=== PATIENT | female | born 1960 | race Caucasian/White ===

== ENCOUNTER 2016-11-14 06:46 | Day surgery (SDC) | payer OTHER ==
[~2016-11-14] VITALS: Ht 165.1 cm; Wt 79.4 kg
[2016-11-14] MEDS ORDERED: INSULIN LISPRO 100 UNITS/ML VIAL SUBQ SCH ×2 (08:05→10:40)
[2016-11-14] MEDS ORDERED: GABA300C PO (08:21)
[2016-11-14] MEDS ORDERED: ASPI-1206 PO (08:21)
[2016-11-14] MEDS ORDERED: ANXIETY (08:21)
[2016-11-14] MEDS ORDERED: HTN (08:21)
[2016-11-14] MEDS ORDERED: METF500T PO (08:21)
[2016-11-14] MEDS ORDERED: [UNRECOGNIZED DRUG - REMARK] (08:24)
[2016-11-14] MEDS ORDERED: ATI.5 PO (08:24)
[2016-11-14] MEDS ORDERED: VITD1000 PO (08:26)
[2016-11-14] MEDS ORDERED: fentaNYL 0.05 MG/ML VIAL ONE (08:53)
[2016-11-14] MEDS ORDERED: BUPIVACAINE-MPF 0.25% 30 ML VIAL INJ ONE (08:54)
[2016-11-14] MEDS ORDERED: ONDANSETRON 4 MG/2 ML VIAL IVP ONE (08:54)
[2016-11-14] MEDS ORDERED: PROPOFOL 200 MG/20 ML VIAL IV ONE (08:54)
[2016-11-14] MEDS ORDERED: SEVOFLURANE 250 ML BTL INH ONE (08:54)
[2016-11-14] MEDS ORDERED: KETOROLAC 30 MG/ML VIAL IVP PRN (09:20)
[2016-11-14] MEDS ORDERED: BLOOD GLUCOSE MONITORING 1 DEV DEV FS SCH (09:24)
[2016-11-14] MEDS ORDERED: ONDANSETRON 4 MG/2 ML VIAL IV PRN (09:55)
[2016-11-14] MEDS ORDERED: MORPHINE SULFATE 4 MG/ML SYR IV PRN (09:55)
[2016-11-14] MEDS ORDERED: ACETAMINOPHEN 325 MG TAB PO PRN (09:55)
[2016-11-14] MEDS ORDERED: HYDROmorphone 1 MG/ML AMP IVP PRN (09:55)
[2016-11-14] MEDS ORDERED: MORPHINE SULFATE 2 MG/ML SYR IVP PRN (09:55)
[2016-11-14] MEDS ORDERED: INSULIN LISPRO SLIDING SCALE 100 UNITS/ML VIAL SUBQ ONE (10:15)
== END 2016-11-14 12:22 | disposition home or self-care (01) ==
LOC: MDS 06:46 → MMU 06:46 → MDS 12:22
PROVIDERS: ATTEND Surgery
DX: D17.79 Benign lipomatous neoplasm of other sites (principal); I10 Essential (primary) hypertension; F32.9 Major depressive disorder, single episode, unspecified; F41.8 Other specified anxiety disorders; J45.909 Unspecified asthma, uncomplicated; E11.9 Type 2 diabetes mellitus without complications; E66.9 Obesity, unspecified; G40.909 Epilepsy, unspecified, not intractable, without status epilepticus; Z79.84 Long term (current) use of oral hypoglycemic drugs; Z98.890 Other specified postprocedural states; Z79.899 Other long term (current) drug therapy
CPT/HCPCS: 23073; 71010; 82948; 88304; 93005; J0690; J1815; J2270; J2405; J2704; J3010; J3490; J7030; J7060

== ENCOUNTER 2018-08-10 14:23 | Inpatient (IN) | payer OTHER ==
[~2018-08-10] VITALS: Ht 167.6 cm; Wt 77.6 kg
[~2018-08-10 14:23] MED LIST: ANXIETY; ASPI-1206 PO; ATI.5 PO; GABA300C PO; HTN; METF500T PO; VITD1000 PO; [UNRECOGNIZED DRUG - REMARK]
[2018-08-10 14:46] VITALS: BP 131/87
--- NOTE | 2018-08-10 14:54 | NUR ---
PATIENT IN THE BATHROOM
--- NOTE | 2018-08-10 14:57 | NUR ---
PT TAKEN TO BED 12.
--- NOTE | 2018-08-10 15:23 | NUR ---
PATIENT SENT FROM THE URGENT CARE FOR FURTHER EVALUATION. C/O ABD PAIN 9/10, DIARRHIA, NAUSEA AND VOMITING X 2DAYS. HX:DM,HIGH CHOLESTEROL,HTN, ASTHMA. NKDA. CONNECTED TO MONITOR.
[2018-08-10] MEDS ORDERED: PROMETHAZINE 25 MG/ML VIAL IM ONE (15:50)
[2018-08-10] MEDS ORDERED: MORPHINE SULFATE 4 MG/ML SYR IVP ONE (15:50)
[2018-08-10] MEDS ORDERED: KETOROLAC 30 MG/ML VIAL IVP ONE (15:50)
[2018-08-10] MEDS ORDERED: NACL 0.9% 1,000 ML IV ONE (15:50)
[2018-08-10 16:22] LABS: BASOPHILS % (AUTO) 0.3 % (0.0-2.0); EOSINOPHILS % (AUTO) 0.3 % (0.0-4.0); HEMATOCRIT 39.3 % (36-48); HEMOGLOBIN 13.2 g/dL (12.0-16.0); LYMPHOCYTES # (AUTO) 1.5 K/uL (2.5-16.5); LYMPHOCYTES % (AUTO) 31.5 % (20.5-51.1); MEAN CORPUSCULAR HEMOGLOBIN 31 pg (27-31); MEAN CORPUSCULAR HGB CONC 34 g/dL (33-37); MEAN CORPUSCULAR VOLUME 92.7 fL (80-94); MONOCYTES # (AUTO) 0.8 K/uL (0.8-1.0); MONOCYTES % (AUTO) 15.7 % (1.7-9.3); NEUTROPHILS # (AUTO) 2.5 K/uL (1.8-7.7); NEUTROPHILS % (AUTO) 52.2 % (42.2-75.2); PLATELET COUNT (AUTO) 194 K/uL (140-450); RED BLOOD CELL COUNT(AUTO) 4.24 MIL/uL (4.20-5.40); RED CELL DISTRIBUTION WIDTH 12.9 % (11.6-13.7); WHITE BLOOD COUNT (AUTO) 4.8 K/uL (4.8-10.8)
[2018-08-10 16:28] LABS: ANION GAP 17.5 (8-16); CARBON DIOXIDE 20.5 mmol/L (21-32)
[2018-08-10 16:34] LABS: ALBUMIN 3.6 g/dL (3.4-5.0); TOTAL BILIRUBIN 0.3 mg/dL (0.0-1.0)
--- NOTE | 2018-08-10 16:43 | NUR ---
Patient returned from CT scan. RN re-evaluating patient at bedside.
[2018-08-10] MEDS ORDERED: KCL 20 MEQ/WATER INJ PREMIX 100 ML IV ONE (17:40)
[2018-08-10] MEDS ORDERED: MORPHINE SULFATE 4 MG/ML SYR IVP PRN (18:45)
[2018-08-10] MEDS ORDERED: ACETAMINOPHEN 325 MG TAB PO PRN (18:45)
[2018-08-10] MEDS ORDERED: ALBUTEROL 0.083% 2.5 MG/3 ML NEBU INH PRN (18:45)
[2018-08-10] MEDS ORDERED: DEXTROSE 50% 50 ML SYR IVP PRN (18:50)
--- NOTE | 2018-08-10 19:16 | NUR ---
Pt report given to Carly RAGLAND . Transfer of care at this time.
[2018-08-10 20:25] VITALS: BP 141/59
--- NOTE | 2018-08-10 20:25 | NUR ---
RECEIVED BEDSIDE REPORT FROM PRODUCTION CONTROL PEGBOARD CLERK, PATIENT AMBULATED FROM WHEELCHAIR TO BED WITH STEADY GAIT, VITAL SIGNS STABLE EXCEPT FOR MINOR TACHYCARDIA, NO SIGNS OF DISTRESS ON RA, ORIENTED PATIENT TO ROOM AND UNIT AND EDUCATED PATIENT ON PLAN OF CARE, PATIENT SAYS PAIN IS TOLERABLE AT THIS TIME, BED LOW, CALL LIGHT IN REACH, WILL CONTINUE TO MONITOR.
--- NOTE | 2018-08-10 20:25 | NUR ---
Patient admited to Med-Surg. Will go to room 113-A. VSS, patient acting appropriatly; medications still infusing at time of transfer. Belongings list completed. Report to ELLYN Rogel; patient is going to have family bring home meds for med rec.
[2018-08-10 20:31] LABS: APPEARANCE,URINE CLEAR (CLEAR); BILIRUBIN,URINE NEGATIVE (NEGATIVE); BLOOD, URINE NEGATIVE (NEGATIVE); COLOR,URINE YELLOW (YELLOW); LEUKOCYTE ESTERASE ,URINE NEGATIVE (NEGATIVE); NITRITE, URINE NEGATIVE (NEGATIVE); UGLUCOSE 1+ (NEGATIVE)
[2018-08-10] MEDS: BLOOD GLUCOSE MONITORING 1 DEV DEV FS SCH (21:58)
[2018-08-10] MEDS: INSULIN LISPRO SLIDING SCALE 100 UNITS/ML VIAL SUBQ PRN (22:03)
[2018-08-10] MEDS: LACTATED RINGERS 1,000 ML IV SCH (22:39)
--- NOTE | 2018-08-10 23:15 | NUR ---
PATIENT COMPLAINING OF PAIN AT IV SITE IN RIGHT AC, IV LINE INFILTRATED. DISCONTINUED 20G FROM RIGHT AC, TIP INTACT. INSERTED 22 G IV CATHETER IN LEFT FOREARM, INSERTED ON FIRST TRY, PATIENT TOLERATED WELL.
[2018-08-11] MEDS ORDERED: PIPERACILLIN/TAZOBACTAM 2.25 GM VIAL IV ONE (00:30)
[2018-08-11] MEDS: LORazepam 2 MG/ML VIAL IVP PRN ×2 (00:34→23:50)
[2018-08-11] MEDS: PIPERACILLIN/TAZOBACTAM 3.375 GM in DEXTROSE 5% 50 ML IV SCH ×2 (00:35→06:54)
[2018-08-11] MEDS ORDERED: PIPERACILLIN/TAZOBACTAM 3.375 GM VIAL IV ONE ×2 (00:38→06:58)
--- NOTE | 2018-08-11 01:15 | NUR ---
PATIENT SLEEPING IN BED, TOLERATING IV INFUSIONS WELL, NO SIGNS OF DISTRESS ON RA, BED LOW, CALL LIGHTIN IN REACH, WILL CONTINUE TO MONITOR.
[2018-08-11] MEDS: KCL 20 MEQ/WATER INJ PREMIX 200 ML IV SCH ×3 (02:00→11:36)
--- NOTE | 2018-08-11 03:00 | NUR ---
PAGED DR. ESTES AND VERIFIED IV ORDER OF POTASSIUM 40 MEQ X 2 DOSES SCHEDULED Q6 HOURS. NOTIFIED MD THAT ER GAVE 20 MEQ BEFORE COMING TO MST ROOM. PER DR. ESTES, GIVE THE 40 MEQ POTASSIUM IV WELL 0600 DOSE WELL. WILL ADMINISTER PER MD ORDERS.
--- NOTE | 2018-08-11 03:20 | NUR ---
PATIENT SLEEPING IN BED, NO SIGNS OF DISTRESS ON RA, TOLERATING INFUSIONS WELL, BED LOW, CALL LIGHT IN REACH.
[2018-08-11 04:00] VITALS: BP 110/67
--- NOTE | 2018-08-11 05:26 | NUR ---
PATIENT LYING DOWN IN BED SLEEPING, AROUSABLE BY VOICE. NO DISTRESS NOTED. CONDITION UNCHANGED. WILL CONTINUE TO MONITOR.
[2018-08-11] MEDS ORDERED: ATOR40TA PO (05:37)
[2018-08-11] MEDS ORDERED: QUET25TA PO (05:37)
[2018-08-11] MEDS ORDERED: MELO15TA11 PO (05:37)
[2018-08-11] MEDS ORDERED: LOSA50TA66 PO (05:37)
[2018-08-11] MEDS ORDERED: BEN50 PO ×2 (05:37)
[2018-08-11] MEDS ORDERED: CYCL10TA13 PO (05:37)
[2018-08-11] MEDS ORDERED: MIRT15TA PO (05:37)
[2018-08-11] MEDS ORDERED: MAG SULF 2000 MG/WATER PREMIX 50 ML IV SCH (06:00)
--- NOTE | 2018-08-11 06:33 | NUR ---
PATIENT HAS BEEN SCREENED AND CATEGORIZED MODERATE NUTRITION RISK. PATIENT WILL BE SEEN WITHIN 3-5 DAYS OF ADMISSION. 08/12/18-08/14/18 KEITH WORTHINGTON MS, RDN
[2018-08-11] MEDS: BLOOD GLUCOSE MONITORING 1 DEV DEV FS SCH ×4 (06:54→21:28)
[2018-08-11] MEDS: LACTATED RINGERS 1,000 ML IV SCH ×2 (06:55→19:41)
[2018-08-11] MEDS: INSULIN LISPRO SLIDING SCALE 100 UNITS/ML VIAL SUBQ PRN ×4 (06:57→21:27)
--- NOTE | 2018-08-11 07:26 | NUR ---
GAVE BEDSIDE REPORT TO DAY SHIFT RN, ENDORSED PATIENT IN STABLE CONDITION.
--- NOTE | 2018-08-11 07:29 | NUR ---
REPORT RECEIVED FROM GIS INSTRUCTOR NURSE, PT AWAKE ALERT, RESP EVEN UNLABORED ON RA, SKIN WARM DRY COLOR WNL, ONLY REPORTS MINOR ABD PAIN, DENIES NEED FOR PAIN MED, POC REVIEWED, ALL SAFETY MEASURES IN PLACE, DENIES ANY IMMEDIATE NEEDS, WILL CONTINUE TO MONITOR.
[2018-08-11 07:58] LABS: BASOPHILS % (AUTO) 0.3 % (0.0-2.0); EOSINOPHILS % (AUTO) 0.5 % (0.0-4.0); HEMATOCRIT 37.4 % (36-48); HEMOGLOBIN 12.6 g/dL (12.0-16.0); LYMPHOCYTES # (AUTO) 1.7 K/uL (2.5-16.5); MEAN CORPUSCULAR HEMOGLOBIN 31 pg (27-31); MEAN CORPUSCULAR HGB CONC 34 g/dL (33-37); MEAN CORPUSCULAR VOLUME 92.9 fL (80-94); MONOCYTES # (AUTO) 0.7 K/uL (0.8-1.0); NEUTROPHILS # (AUTO) 1.8 K/uL (1.8-7.7); PLATELET COUNT (AUTO) 190 K/uL (140-450); RED BLOOD CELL COUNT(AUTO) 4.02 MIL/uL (4.20-5.40); RED CELL DISTRIBUTION WIDTH 12.8 % (11.6-13.7); WHITE BLOOD COUNT (AUTO) 4.3 K/uL (4.8-10.8)
[2018-08-11 08:00] VITALS: BP 96/64
[2018-08-11 08:22] LABS: LYMPHOCYTES % (AUTO) 39.5 % (20.5-51.1); MONOCYTES % (AUTO) 17.2 % (1.7-9.3); NEUTROPHILS % (AUTO) 42.5 % (42.2-75.2)
[2018-08-11 08:43] LABS: ALBUMIN 3.2 g/dL (3.4-5.0); ANION GAP 15.3 (8-16); CARBON DIOXIDE 24.4 mmol/L (21-32); CREATININE 0.8 mg/dL (0.6-1.3); POTASSIUM 3.7 mmol/L (3.5-5.1); TOTAL BILIRUBIN 0.3 mg/dL (0.0-1.0)
[2018-08-11] MEDS: ASPIRIN 325 MG TAB PO SCH (08:45)
[2018-08-11] MEDS: ENOXAPARIN 40 MG/0.4 ML SYR SUBQ SCH (08:54)
[2018-08-11] MEDS: MORPHINE SULFATE 2 MG/ML SYR IVP PRN (08:59)
--- NOTE | 2018-08-11 09:00 | NUR ---
PT C/O PULLING PAIN IN ABD, LOWER BACK 10/07, MORPHINE GIVEN PER ORDER.
[2018-08-11] MEDS: PIPER/TAZO 3.375GM/D5W PREMIX 50 ML IV SCH ×2 (11:42→18:34)
--- NOTE | 2018-08-11 11:48 | NUR ---
DR ESTES AT BEDSIDE, PT SITTING UP TALKING WITH VISITORS, 4U INSULIN GIVEN FOR BLOOD SUGAR 202, WILL CONTIUE TO MONITOR.
--- NOTE | 2018-08-11 14:02 | NUR ---
PT SITTING UP RESTING QUIETLY IN NAD, RESP EVEN UNLABORED, DENIES PAIN AT THIS TIME, IVF CONTINUES TO INFUSE WELL, SITE WNL, WILL CONTINUE TO MONITOR.
[2018-08-11 16:00] VITALS: BP 124/80
--- NOTE | 2018-08-11 16:09 | NUR ---
VITALS TAKEN, BLOOD SUGAR CHECKED, 152, WILL GIVE 2 U BEFORE DINNER, PT REPORTS ONLY MINOR PAIN, STATES SHE HAS HAD MULTIPLE LOOSE BM, LIQUID BUT NON-BLOODY.
--- NOTE | 2018-08-11 18:38 | NUR ---
ZOSYN STARTED PER ORDER, PT SITTING UP TALKING WITH VISITORS, DENIES ANY IMMEDIATE NEEDS, PT AWAKE ALERT, IN NO ACUTE DISTRESS.
--- NOTE | 2018-08-11 19:14 | NUR ---
REPORT GIVEN TO SCRIPT SUPERVISOR NURSE, PT IN STABLE CONDITION.
--- NOTE | 2018-08-11 19:15 | NUR ---
RECEIVED REPORT FROM AM NURSE. NO DISTRESS NOTED. PAIN WITHIN TOLERABLE AT THIS TIME. AAOX4, CALM, COOPERATIVE, SKIN COLOR APPROPRIATE TO ETHNICITY, WARM TO TOUCH. SKIN INTACT. RESPIRATIONS EVEN, UNLABORED, ON ROOM AIR. IV SITE INTACT, PATENT, AND INFUSING IVF PER MD ORDERS. ABDOMEN SOFT, NON-DISTENDED. REVIEWED PLAN OF CARE WITH PATIENT. PATIENT VERBALIZED UNDERSTANDING. SAFETY MEASURES IN PLACE, CALL LIGHT WITHIN REACH. WILL CONTINUE TO MONITOR.
[2018-08-11] MEDS: MIRTAZAPINE 15 MG TAB PO SCH (21:00)
[2018-08-11] MEDS: metFORMIN 500 MG TAB PO SCH (21:18)
[2018-08-11] MEDS: CYCLOBENZAPRINE 10 MG TAB PO SCH (21:20)
[2018-08-11] MEDS: QUEtiapine FUMARATE 25 MG TAB PO SCH (21:20)
--- NOTE | 2018-08-11 21:29 | NUR ---
PATIENT SITTING ON BEDSIDE CHAIR TALKING ON THE PHONE. NO DISTRESS NOTED. COMPLAINS OF MILD PAIN, TYLENOL GIVEN PER ORDERS. OTHER SCHEDULED MEDICATIONS DUE GIVEN. WILL CONTINUE TO MONITOR.
--- NOTE | 2018-08-11 23:53 | NUR ---
PATIENT FEELING ANXIOUS, ATIVAN GIVEN PER MD ORDERS. WILL CONTINUE TO MONITOR.
[2018-08-12] VITALS: BP 118/72
[2018-08-12] MEDS: PIPER/TAZO 3.375GM/D5W PREMIX 50 ML IV SCH ×5 (00:04→23:33)
--- NOTE | 2018-08-12 01:00 | NUR ---
PATIENT LYING DOWN IN BED SLEEPING, AROUSABLE BY VOICE. CONDITION UNCHANGED. WILL CONTINUE TO MONITOR.
--- NOTE | 2018-08-12 03:30 | NUR ---
PATIENT LYING DOWN IN BED SLEEPING, AROUSABLE BY VOICE. NO DISTRESS NOTED. WILL CONTINUE TO MONITOR.
[2018-08-12] MEDS: LACTATED RINGERS 1,000 ML IV SCH (05:35)
--- NOTE | 2018-08-12 05:41 | NUR ---
PATIENT LYING DOWN IN BED SLEEPING, AROUSABLE BY VOICE. NO DISTRESS NOTED. SCHEDULED MEDICATIONS DUE GIVEN. WILL CONTINUE TO MONITOR.
[2018-08-12] MEDS: INSULIN LISPRO SLIDING SCALE 100 UNITS/ML VIAL SUBQ PRN ×3 (06:24→20:05)
[2018-08-12] MEDS: BLOOD GLUCOSE MONITORING 1 DEV DEV FS SCH ×4 (06:24→20:06)
--- NOTE | 2018-08-12 07:10 | NUR ---
REPORT RECEIVED FROM CHEMISTRY DEPARTMENT CHAIR NURSE AT BEDSIDE. PT IS ASLEEP ON ROOM AIR, NO S/S OF ANY ACUTE DISTRESS NOTED, NO SOB. SKIN IS INTACT. IV SITE NOTED ON LFA, 22 GAUGE, INFUSING LR 80 ML/HR. PT IS ON CLEAR LIQUID DIET. CALL LIGHT IS WITHIN REACH, WILL CONTINUE TO MONITOR.
--- NOTE | 2018-08-12 07:35 | NUR ---
GAVE REPORT TO AM NURSE FOR CONTINUITY OF CARE. PATIENT IN STABLE CONDITION.
[2018-08-12 08:00] VITALS: BP 110/56
[2018-08-12] MEDS: ASPIRIN 325 MG TAB PO SCH (09:00)
[2018-08-12] MEDS: LOSARTAN 50 MG TAB PO SCH (09:00)
[2018-08-12] MEDS: ATORVASTATIN 20 MG TAB PO SCH (09:00)
[2018-08-12] MEDS: CYCLOBENZAPRINE 10 MG TAB PO SCH ×2 (09:00→19:57)
[2018-08-12] MEDS: ENOXAPARIN 40 MG/0.4 ML SYR SUBQ SCH (09:00)
[2018-08-12] MEDS: metFORMIN 500 MG TAB PO SCH ×2 (09:00→19:57)
--- NOTE | 2018-08-12 09:49 | NUR ---
CM NOTE I SPOKE WITH LINDA OF [facility] PH# [phone] TO SCHEDULE PATIENT'S OUTPATIENT FOLLOW UP APPOINTMENT ON AUGUST 19, 2018 AT 9:00 AM AT THE CLINIC AT [address] [place] [address]. I GAVE THE PATIENT HER OUTPATIENT FOLLOW UP APPOINTMENT.
--- NOTE | 2018-08-12 10:23 | NUR ---
PT'S IV SITE INFILTRATED. WILL ATTEMPT TO INSERT NEW IV.
--- NOTE | 2018-08-12 10:33 | NUR ---
SCHEDULED MA MEDS ADMINISTERED. PT TOLERATED WELL.
--- NOTE | 2018-08-12 10:38 | NUR ---
PT SEEN BY DR ESTES
--- NOTE | 2018-08-12 11:11 | NUR ---
NEW IV INSERTED: L HAND 24 GAUGE. PATENT AND INTACT.
[2018-08-12 16:00] VITALS: BP 119/61
--- NOTE | 2018-08-12 18:05 | NUR ---
DR HWANG IS AWARE OF PT'S LOW O2 SATS (90-91%). DR HWANG WILL ORDER O2 NASAL CANULA NEEDED TO KEEP O2 SAT ABOVE 92%. Addendum: 08/12/18 at 1851 by Sri Jarvis RN CHARTED ON WRONG PATIENT
--- NOTE | 2018-08-12 19:15 | NUR ---
PT ENDORSED TO BUSINESS MACHINE OPERATOR IN STABLE CONDITION.
--- NOTE | 2018-08-12 19:30 | NUR ---
RECEIVED BEDSIDE REPORT FROM RN JUNI, PATIENT IN RESTROOM, IV IN LEFT HAND 24 G SL, WILL ASSESS ONCE PATIENT IS BACK IN BED. UPDATED WHITE BOARD
[2018-08-12] MEDS: MIRTAZAPINE 15 MG TAB PO SCH (19:57)
[2018-08-12] MEDS: QUEtiapine FUMARATE 25 MG TAB PO SCH (19:57)
--- NOTE | 2018-08-12 20:00 | NUR ---
DUE MEDICATIONS GIVEN, BG 164 WILL MEDICATE WITH INSULIN
[2018-08-12] MEDS: LORazepam 2 MG/ML VIAL IVP PRN (21:16)
--- NOTE | 2018-08-12 21:21 | NUR ---
PATIENT C/O ANXIETY GAVE ATIVAN
--- NOTE | 2018-08-12 22:30 | NUR ---
PATIENT RESTING IN BED WILL CONTINUE TO MONITOR
[2018-08-13] VITALS: BP 115/66
--- NOTE | 2018-08-13 | NUR ---
ZOSYN GIVEN, V/S STABLE
--- NOTE | 2018-08-13 02:30 | NUR ---
SLEEPING IN BED NO SINGS OF DISTRESS
--- NOTE | 2018-08-13 04:15 | NUR ---
PATIENT SLEEPING IN BED
[2018-08-13] MEDS: PIPER/TAZO 3.375GM/D5W PREMIX 50 ML IV SCH ×2 (05:00→11:55)
[2018-08-13] MEDS: BLOOD GLUCOSE MONITORING 1 DEV DEV FS SCH ×2 (05:27→11:38)
--- NOTE | 2018-08-13 05:29 | NUR ---
BG 221 WILL GIVE INSULIN
[2018-08-13] MEDS: INSULIN LISPRO SLIDING SCALE 100 UNITS/ML VIAL SUBQ PRN ×2 (06:01→12:04)
--- NOTE | 2018-08-13 07:22 | NUR ---
ENDORSED PATIENT TO DAY SHIFT NURSE PATIENT STABLE
--- NOTE | 2018-08-13 07:23 | NUR ---
GOT BEDSIDE REPORT FROM ELLYN GLEZ. PATIENT ON MED SURGE AND STANDARD PRECAUTIONS IN PLACE. PATIENT AAOX4 AND ON ROOM AIR, NO DISTRESS NOTED. SKIN INTACT. PATIENT AMBULATORY. IV ON L FA 22 G, SALINE LOCK, IV ASYMPTOMATIC PATENT AND INTACT. BED IN LOW POSITION, CALL LIGHT WITHIN REACH, SIDE RAILS X2 UP
[2018-08-13 08:00] VITALS: BP 127/78
[2018-08-13] MEDS: CYCLOBENZAPRINE 10 MG TAB PO SCH (09:45)
[2018-08-13] MEDS: ASPIRIN 325 MG TAB PO SCH (09:45)
[2018-08-13] MEDS: ATORVASTATIN 20 MG TAB PO SCH (09:45)
[2018-08-13] MEDS: metFORMIN 500 MG TAB PO SCH (09:46)
[2018-08-13] MEDS: LOSARTAN 50 MG TAB PO SCH (09:46)
[2018-08-13] MEDS: ENOXAPARIN 40 MG/0.4 ML SYR SUBQ SCH (09:53)
--- NOTE | 2018-08-13 10:01 | NUR ---
ADMINISTERED SCHEDULED MEDS. PATIENT TOLERATED WELL
[2018-08-13] MEDS: MORPHINE SULFATE 2 MG/ML SYR IVP PRN (10:08)
--- NOTE | 2018-08-13 10:14 | NUR ---
ADMINISTERED MORPHINE PRN FOR 6/10 PAIN
[2018-08-13] MEDS ORDERED: METR500S14 PO (12:38)
--- NOTE | 2018-08-13 14:40 | NUR ---
DISCHARGE INSTRUCTIONS PROVIDED TO PATIENT. PNA AND FLU VACCINE UP TO DATE BOTH RECEIVED 2018. SKIN INTACT. EDUCATED TO FOLLOW UP WITH PRIMARY DOCTOR AND TO RETURN TO NEAREST ER IF SHE EXPERIENCES SOB, FEVER, PAIN. PATIENT PROVIDED COPY OF FOLLOW UP APPOINTMENT. REMOVED WRIST BANDS AND IV, IV TIP INTACT. ANSWERED ALL QUESTIONS AND CONCERNS
== END 2018-08-13 14:40 | disposition home or self-care (01) | DRG 248 ==
LOC: MED 14:23 → MTU 18:48
PROVIDERS: ADMIT Internal Medicine Pulmonary Disease; ATTEND Internal Medicine Pulmonary Disease
DX: A04.9 Bacterial intestinal infection, unspecified (principal); E11.9 Type 2 diabetes mellitus without complications; E87.6 Hypokalemia; E86.0 Dehydration; E78.00 Pure hypercholesterolemia, unspecified; E78.5 Hyperlipidemia, unspecified; J45.909 Unspecified asthma, uncomplicated; I10 Essential (primary) hypertension; F32.9 Major depressive disorder, single episode, unspecified; Z79.899 Other long term (current) drug therapy
CPT/HCPCS: 36415; 76705; 80053; 81003; 81025; 82150; 82948; 83690; 83735; 85025; 87081; 96361; 96365; 96372; 96375; 99285; J1650; J1815; J1885; J2060; J2270; J2543; J2550; J3475; J3480; J7060; J7120; Q0092

== ENCOUNTER 2018-10-31 16:59 | Inpatient (IN) | payer OTHER ==
[~2018-10-31] VITALS: Ht 167.6 cm; Wt 78.5 kg
[~2018-10-31 16:59] MED LIST changes: -ANXIETY; -ASPI-1206 PO; +ATOR40TA PO; +BEN50 PO; +CYCL10TA13 PO; -GABA300C PO; -HTN; +LOSA50TA66 PO; +MELO15TA11 PO; +METR500S14 PO; +MIRT15TA PO; +QUET25TA PO; -[UNRECOGNIZED DRUG - REMARK]
[2018-10-31 17:03] VITALS: BP 140/74
--- NOTE | 2018-10-31 17:10 | NUR ---
Yoselyn wilson in [facility] - 10/31/18 at 1941 by DIANA REPORT GIVEN TO BRICE RN
--- NOTE | 2018-10-31 17:12 | NUR ---
PT AMBULATED TO ER BED 06
--- NOTE | 2018-10-31 17:15 | NUR ---
PT C/O COUGH, FEVER & BODY ACHES 11/06 X3 DAYS. DENIES N/V/D. PT WAS REFFERED TO ER BY URGENT CARE TO R/O PNEUMONIA. PT REPORTS TAKING COUGH MEDICINE THAT DIDNT PROVIDE RELIEF. SKIN IS PINK/WARM/DRY; AAOX4 WITH EVEN AND STEADY GAIT; LUNGS CLEAR BL; HR EVEN AND REGULAR; PT DENIES ANY FEVER, CP, SOB, OR COUGH AT THIS TIME; VSS; PATIENT POSITIONED FOR COMFORT; HOB ELEVATED; BEDRAILS UP X1; BED DOWN. ER MD MADE AWARE OF PT STATUS.
[2018-10-31] MEDS ORDERED: NACL 0.9% 1,000 ML IV SCH (17:27)
[2018-10-31] MEDS ORDERED: DEXAMETHASONE 10 MG/ML VIAL IVP ONE (17:30)
[2018-10-31] MEDS ORDERED: AZITHROMYCIN 500 MG in DEXTROSE 5% 250 ML IV ONE (17:30)
[2018-10-31] MEDS ORDERED: PIPERACILLIN/TAZOBACTAM 3.375 GM in DEXT 5% MINI-BAG PLUS 50 ML IV ONE (17:30)
[2018-10-31] MEDS ORDERED: ALBUTEROL SULFATE/IPRATROPIU 3 ML SOL IH ONE (17:30)
[2018-10-31] MEDS ORDERED: diphenhydrAMINE 50 MG/ML VIAL IVP ONE (17:30)
[2018-10-31] MEDS ORDERED: AZITHROMYCIN 500 MG INJ VIAL IV ONE (17:50)
--- NOTE | 2018-10-31 17:50 | NUR ---
RT IS AT BEDSIDE FOR THERAPY.
[2018-10-31] MEDS ORDERED: PIPERACILLIN/TAZOBACTAM 3.375 GM VIAL IV ONE (17:51)
[2018-10-31 18:10] LABS: BASOPHILS % (AUTO) 0.4 % (0.0-2.0); EOSINOPHILS # (AUTO) 0.1 K/uL (0-0.4); EOSINOPHILS % (AUTO) 1.3 % (0.0-4.0); HEMATOCRIT 39.2 % (36-48); LYMPHOCYTES # (AUTO) 1.4 K/uL (2.5-16.5); LYMPHOCYTES % (AUTO) 29.8 % (20.5-51.1); MEAN CORPUSCULAR HEMOGLOBIN 31 pg (27-31); MEAN CORPUSCULAR HGB CONC 33 g/dL (33-37); MEAN CORPUSCULAR VOLUME 94.2 fL (80-94); MONOCYTES # (AUTO) 0.6 K/uL (0.8-1.0); MONOCYTES % (AUTO) 12.2 % (1.7-9.3); NEUTROPHILS # (AUTO) 2.6 K/uL (1.8-7.7); NEUTROPHILS % (AUTO) 56.3 % (42.2-75.2); PLATELET COUNT (AUTO) 193 K/uL (140-450); RED BLOOD CELL COUNT(AUTO) 4.16 MIL/uL (4.20-5.40); RED CELL DISTRIBUTION WIDTH 13.4 % (11.6-13.7); WHITE BLOOD COUNT (AUTO) 4.6 K/uL (4.8-10.8)
[2018-10-31 18:19] LABS: APPEARANCE,URINE SL CLOUDY (CLEAR); BILIRUBIN,URINE NEGATIVE (NEGATIVE); BLOOD, URINE TRACE-I (NEGATIVE); COLOR,URINE YELLOW (YELLOW); LEUKOCYTE ESTERASE ,URINE 3+ (NEGATIVE); NITRITE, URINE NEGATIVE (NEGATIVE); UGLUCOSE NEGATIVE (NEGATIVE)
[2018-10-31 18:21] LABS: ANION GAP 16.9 (8-16); CARBON DIOXIDE 24.5 mmol/L (21-32); CREATININE 0.9 mg/dL (0.6-1.3); POTASSIUM 3.4 mmol/L (3.5-5.1)
[2018-10-31 18:27] LABS: ALBUMIN 3.9 g/dL (3.4-5.0); TOTAL BILIRUBIN 0.2 mg/dL (0.0-1.0)
--- NOTE | 2018-10-31 19:10 | NUR ---
REOPRT GIVEN TO ELLYN NARVAEZ.
--- NOTE | 2018-10-31 19:10 | NUR ---
REPORT RECEIVED FROM ELLYN PARRA. [facility] AT THIS TIME.
[2018-10-31 19:31] LABS: RBC,URINE 0-5 /HPF (0-5); WBC,URINE >25 (MANY) /HPF (0-5)
[2018-10-31] MEDS ORDERED: ACETAMINOPHEN 325 MG TAB PO PRN (19:35)
[2018-10-31] MEDS ORDERED: MORPHINE SULFATE 2 MG/ML SYR IVP PRN (19:35)
[2018-10-31] MEDS ORDERED: ONDANSETRON 4 MG/2 ML VIAL IVP PRN (19:35)
[2018-10-31] MEDS ORDERED: MORPHINE SULFATE 4 MG/ML SYR IVP PRN (19:35)
[2018-10-31] MEDS ORDERED: ALBUTEROL 0.083% 2.5 MG/3 ML NEBU INH PRN (19:35)
[2018-10-31] MEDS ORDERED: POTASSIUM CHLORIDE 10 MEQ TABER PO PRN (19:45)
[2018-10-31] MEDS ORDERED: ZOLPIDEM 5 MG TAB PO PRN (19:45)
[2018-10-31] MEDS ORDERED: MAG SULF 2000 MG/WATER PREMIX 50 ML IV PRN (19:45)
--- NOTE | 2018-10-31 19:55 | NUR ---
Patient will be admitted to care of Dr. Ross. [facility]. Will go to room 106B. VSS at time of transport. Belongings list completed. Report to ELLYN Hassan. Transfer of care at this time.
--- NOTE | 2018-10-31 20:00 | NUR ---
PT BROUGHT UP TO UNIT BY BRICE MAINTENANCE TECHNICIAN 2ND SHIFT NURSE, REPORT GIVEN BY BRICE, PT ABLE TO AMBULATE TO BED B OF ROOM 106. PT IS AOX4 IS STATELESS SPEAKING AND HAS SKIN INTACT. SHE HAS AN IV SITE 20G ON LEFT HAND, WHICH IS INTACT AND FLUSHED PATENT. PT LUNGS CLEAR AND BOWEL SOUNDS PRESENT ALL 4 QUADS.
--- NOTE | 2018-10-31 21:00 | NUR ---
PT IS AOX4 ADMISSION QUESTIONS ASKED USING THE [employer] SYSTEM WITH BUTTON MACHINE OPERATOR IVORY # [id number]. PT V/S FOLLOWS T 98.2 P 106 R 18 B/P 132/70.
[2018-10-31] MEDS: BUDESONIDE 0.5 MG/2 ML NEBU INH SCH (22:33)
[2018-10-31] MEDS: ALBUTEROL SULFATE/IPRATROPIU 3 ML SOL IH SCH (22:41)
--- NOTE | 2018-10-31 22:49 | NUR ---
RECEIVED PATIENT ON ROOM AIR, PULSE OX SAT 99%. SCHEDULED BREATHING TREATMENTS ADMINISTERED. TOLERATED TREATMENTS WELL, NO ADVERSE SIDE EFFECTS. NO RESPIRATORY DISTRESS NOTED AT THIS TIME. WILL CONTINUE TO MONITOR.
--- NOTE | 2018-10-31 23:00 | NUR ---
PT GIVEN ORDERED MORPHINE 2MG/1ML IVP/PRN FOR MODERATE PAIN IN BACK, CHEST AND EARS FORM COUGHING. WILL MONITOR FOR EFFECT.
[2018-11-01] MEDS ORDERED: DEXTROSE 50% 50 ML SYR IVP PRN
[2018-11-01] MEDS: INSULIN LISPRO SLIDING SCALE 100 UNITS/ML VIAL SUBQ PRN ×5 (00:09→21:33)
[2018-11-01] MEDS: guaiFENesin 20 MG/ML UDC PO PRN ×3 (00:11→21:39)
--- NOTE | 2018-11-01 00:15 | NUR ---
PT SAID VIA FOREIGN EXCHANGE TRADER THAT SHE TAKES METFORMIN FOR HER DM2 AND SHE IS ASKING FOR SOMETHING FOR COUGHING. DR. PETERS WAS CALLED REGARDING METFORMIN , WHICH HE SAID THAT HE DID NOT WANT TO REORDERED HERE, BUT HE DID ORDERE FINGERSTICK AND S/S PER PROTOCOL. HE ALSO ORDERED PO/PRN ROBITUSSIN FOR COUGH.CLARIFIED WITH MD CONCERNING FLUID ORDERS, MD SAID OK TO SALINE LOCK. MD ALSO CLARIFIED THAT ABG DOESN'T NOT HAVE TO BE DONE, PT IS BREATHING WITH NO S/S OF SOB ON ROOM AIR. PT GIVEN PO/PRN AMBIEN FOR INSOMNIA WELL REQUESTED COUGH MEDICINE, (ROBITUSSIN).WILL MONITOR FOR EFFECT. V/S FOLLOWS T 96.5 P 104 R 18 B/P 131/75 02 96% ON ROOM AIR.
[2018-11-01 01:49] VITALS: BP 132/70
[2018-11-01] MEDS: ALBUTEROL SULFATE/IPRATROPIU 3 ML SOL IH SCH ×6 (04:14→23:00)
[2018-11-01] MEDS: LORazepam 2 MG/ML VIAL IVP PRN (04:52)
--- NOTE | 2018-11-01 04:59 | NUR ---
PT IN BED V/S FOLLOWS T 97.4 P 102 R 18 B/P 109/57 02 98% ON ROOM AIR. PT C/O ANXIOUS AND UNABLE TO SLEEP. PT GIVEN PRN/IVP ATIVAN. PT ALSO RECEIVED LAB DRAWS AT BEDSIDE.
[2018-11-01] MEDS: BLOOD GLUCOSE MONITORING 1 DEV DEV FS SCH ×4 (06:24→21:27)
--- NOTE | 2018-11-01 06:53 | NUR ---
FINGERSTICK IS 187, PT GIVEN 2 UNITS OF HUMALOG COVERAGE NO S/S OF PAIN OR DISTRESS NOTED.
[2018-11-01 06:54] LABS: ALBUMIN 3.8 g/dL (3.4-5.0); ANION GAP 17.9 (8-16); CARBON DIOXIDE 22.8 mmol/L (21-32); CREATININE 0.8 mg/dL (0.6-1.3); MAGNESIUM 1.3 mg/dL (1.8-2.4); POTASSIUM 3.7 mmol/L (3.5-5.1); TOTAL BILIRUBIN 0.2 mg/dL (0.0-1.0)
--- NOTE | 2018-11-01 07:10 | NUR ---
ENDORSED CARE TO ALVA RN DAYSHIFT NURSE AT BEDSIDE FOR CONTINUITY OF CARE, PT IN STABLE CONDITION.
--- NOTE | 2018-11-01 07:12 | NUR ---
RECEIVED BEDSIDE REPORT FROM LEAD INGOT MOLDER NURSE FOR CONTINUITY OF CARE. PATIENT IS RESTING ON BED AT THIS TIME. PATIENT IS AAOX4, SPEAKS RUSSIAN AND ABLE TO UNDERSTAND MINIMAL POLISH. PATIENT IS ABLE TO MAKE NEEDS KNOWN AND FOLLOW SIMPLE DIRECTION. RESPIRATION EVEN AND UNLABORED ON RA. LUNGS ARE CLEAN ON AUSCULTATION. INTERMITTENT COUGHS NOTED. PATIENT DENIED PAIN AND SOB AT THIS TIME. NO SIGNS OF DISTRESS NOTED. IV ON R HAND 20G, CLEAN AND INTACT, SL. SKIN CLEAN AND DRY. PATIENT IS ABLE TO AMBULATE WITH STEADY GAIT AND CONTINENT. DISCUSSED PLAN OF CARE WITH PATIENT AND PATIENT VERBALIZED OK. TELE MONITOR ATTACHED. SAFETY MEASURES IN PLACE. BED IN LOW POSITION AND CALL LIGHT WITHIN REACH. INSTRUCTED PATIENT TO USE THE CALL LIGHT FOR ANY ASSISTANCE AND PATIENT WAS AWARE.
[2018-11-01 07:24] LABS: BASOPHILS % (AUTO) 0.2 % (0.0-2.0); HEMATOCRIT 37.8 % (36-48); HEMOGLOBIN 12.7 g/dL (12.0-16.0); LYMPHOCYTES % (AUTO) 22.1 % (20.5-51.1); MEAN CORPUSCULAR HEMOGLOBIN 31 pg (27-31); MEAN CORPUSCULAR HGB CONC 34 g/dL (33-37); MEAN CORPUSCULAR VOLUME 93.7 fL (80-94); MONOCYTES # (AUTO) 0.2 K/uL (0.8-1.0); MONOCYTES % (AUTO) 4.6 % (1.7-9.3); NEUTROPHILS # (AUTO) 3.3 K/uL (1.8-7.7); NEUTROPHILS % (AUTO) 73.1 % (42.2-75.2); PLATELET COUNT (AUTO) 204 K/uL (140-450); RED BLOOD CELL COUNT(AUTO) 4.04 MIL/uL (4.20-5.40); RED CELL DISTRIBUTION WIDTH 13.3 % (11.6-13.7); WHITE BLOOD COUNT (AUTO) 4.5 K/uL (4.8-10.8)
[2018-11-01 08:00] VITALS: BP 135/65
--- NOTE | 2018-11-01 08:15 | NUR ---
RECEIVED CRITICAL LAB FOR LACTIC ACID 2.6, PAGED DR ESTES AND RECEIVED A CALL BACK FROM DR ESTES, DR ESTES WAS AWARE OF CRITICAL LAB 2.6 LACTIC ACID. NO ORDER RECEIVED.
[2018-11-01] MEDS: methylPREDNISolone SS 125 MG/2 ML VIAL IVP SCH ×2 (08:46→21:28)
[2018-11-01] MEDS: ENOXAPARIN 40 MG/0.4 ML SYR SUBQ SCH (08:49)
--- NOTE | 2018-11-01 08:52 | NUR ---
ADMINISTERED MEDS PER MD ORDER, PATIENT TOLERATED WELL. MEDICATION EDUCATION PROVIDED TO PATIENT AND PATIENT VERBALIZED UNDERSTANDING. PATIENT IS SITTING UP ON BED AND WATCHING TV. DENIED PAIN AND SOB. NO SIGNS OF DISTRESS NOTED. SAFETY MEASURES IN PLACE. TELE MONITOR ATTACHED. INSTRUCTED PATIENT TO USE CALL LIGHT FOR ANY ASSISTANCE AND PATIENT WAS AWARE.
--- NOTE | 2018-11-01 08:57 | NUR ---
PATIENT HAS BEEN SCREENED AND CATEGORIZED LOW NUTRITION RISK. PATIENT WILL BE SEEN WITHIN 7 DAYS OF ADMISSION. KRISTINA MAHER RD
[2018-11-01] MEDS: BUDESONIDE 0.5 MG/2 ML NEBU INH SCH ×2 (09:13→19:25)
--- NOTE | 2018-11-01 09:15 | NUR ---
PATIENT IS AWAKE AND PLAYING WITH HER PHONE. INTERMITTER COUGHS NOTE. RESPIRATION EVEN AND UNLABORED ON RA. NO SIGNS OF DISTRESS NOTED. SAFETY MEASURES IN PLACE. TELE MONITOR ATTACHED. BED IN LOW POSITION AND CALL LIGHT WITHIN REACH. INSTRUCTED PATIENT TO USE THE CALL LIGHT FOR ANY ASSISTANCE AND PATIENT WAS AWARE.
--- NOTE | 2018-11-01 10:39 | NUR ---
CALLED PATIENT'S PCP OFFICE DR MARIUSZ GALEANO [phone] THE OFFICE IS CURRENTLY CLOSED AND UN ABLE TO MAKE F/U APPOINTMENT. EXPLAIN TO THE PATIENT AND TO CALL SUNDAY FOR F/U PT VERBALIZED UNDERSTANDING.
--- NOTE | 2018-11-01 10:48 | NUR ---
PATIENT'S MG LEVEL IS 1.3. ADMINISTERED MG PER MD ORDER, PATIENT TOLERATED WELL. PATIENT IS AWAKE AND WATCHING TV ON BED. NO SIGNS OF DISTRESS NOTED. SAFETY MEASURES IN PLACE. TELE MONITOR ATTACHED. BED IN LOW POSITION AND CALL LIGHT WITHIN REACH. INSTRUCTED PATIENT TO USE THE CALL LIGHT FOR ANY ASSISTANCE AND PATIENT WAS AWARE.
--- NOTE | 2018-11-01 11:20 | NUR ---
DR ESTES IS ASSESSING AND TALKING TO PATIENT AT BEDSIDE. NO SIGNS OF DISTRESS NOTED. SAFETY MEASURES IN PLACE. TELE MONITOR ATTACHED. BED IN LOW POSITION AND CALL LIGHT WITHIN REACH.
[2018-11-01 12:00] VITALS: BP 133/76
--- NOTE | 2018-11-01 13:21 | NUR ---
PATIENT IS AWAKE AND LOOKING AT HER PHONE. DENIED PAIN AND SOB. INTERMITTER COUGHS NOTED. NO SIGNS OF DISTRESS NOTED. SAFETY MEASURES IN PLACE. TELE MONITOR ATTACHED. BED IN LOW POSITION AND CALL LIGHT WITHIN REACH. INSTRUCTED PATIENT TO USE THE CALL LIGHT FOR ANY ASSISTANCE AND PATIENT WAS AWARE.
--- NOTE | 2018-11-01 14:09 | NUR ---
PATIENT IS TALKING TO HER SON TIMMY AT BEDSIDE. NO SIGNS OF DISTRESS NOTED. SAFETY MEASURES IN PLACE. TELE MONITOR ATTACHED. BED IN LOW POSITION AND CALL LIGHT WITHIN REACH.
--- NOTE | 2018-11-01 15:55 | NUR ---
PATIENT COMPLAINED THAT SHE FEELS TIRED FROM COUGH AND FEELS RESTLESS. ADMINISTERED PRN GUAIFENESIN, PATIENT TOLERATED WELL. PATIENT STATED " I WILL TRY TO GET FROM REST." SAFETY MEASURES IN PLACE. TELE MONITOR ATTACHED. BED IN LOW POSITION AND CALL LIGHT WITHIN REACH. INSTRUCTED PATIENT TO USE THE CALL LIGHT FOR ANY ASSISTANCE AND PATIENT WAS AWARE.
[2018-11-01 16:00] VITALS: BP 135/70
[2018-11-01] MEDS ORDERED: cefTRIAXone 2,000 MG in DEXTROSE 5% 100 ML IV SCH (16:00)
[2018-11-01] MEDS ORDERED: AZITHROMYCIN 500 MG in DEXTROSE 5% 250 ML IV SCH (16:00)
--- NOTE | 2018-11-01 16:52 | NUR ---
PATIENT COMPLAINED SHE HAS 2/10 HEADACHE, ADMINISTERED PRN ACETAMINOPHEN, PATIENT TOLERATED WELL. PATIENT IS RESTING ON BED AT THIS TIME. SAFETY MEASURES IN PLACE. TELE MONITOR ATTACHED. BED IN LOW POSITION AND CALL LIGHT WITHIN REACH. INSTRUCTED PATIENT TO USE THE CALL LIGHT FOR ANY ASSISTANCE AND PATIENT WAS AWARE.
--- NOTE | 2018-11-01 19:08 | NUR ---
ENDORSED PATIENT AT BEDSIDE TO AUDIO VISUAL SPECIALIST NURSE FOR CONTINUITY OF CARE. PATIENT IS IN STABLE CONDITION. SAFETY MEASURES IN PLACE. TELE MONITOR ATTACHED. BED IN LOW POSITION AND CALL LIGHT WITHIN REACH.
--- NOTE | 2018-11-01 19:10 | NUR ---
RECEIVED REPORT FORM ALVA RN DAYSHIFT NURSE AT BEDSIDE FOR CONTINUITY OF CARE, PT IN STABLE CONDITION.
[2018-11-01 20:00] VITALS: BP 134/78
--- NOTE | 2018-11-01 20:00 | NUR ---
PT IN LOW BED WITH SIDE RAILS UP X2. PT C/O OF PAIN IN CURRENT IV SITE BUT IS HESITANT TO CHANGE SITE. V/S FOLLOWS T 97.6 P 100 R 18 B/P 134/78 02 97% ON ROOM AIR. FINGERSTICK IS 208. WILL GIVEN HUMALOG COVERAGE.
--- NOTE | 2018-11-01 21:35 | NUR ---
NEW IV SITE PROVIDED TO PT DUE TO SITE VERY PAINFUL DURING FLUSHING. PT GIVEN NEW IV SITE ON RIGHT WRIST 24G. NEW IV SITE INTACT AND FLUSHED PATENT. PT GIVEN ORDERED SOLUMEDROL IVP. PT ALSO C/O OF A NON PRODUCTIVE COUGH. PT GIVEN ROBITUSSIN PO/PRN FOR COUGHING. SHE HAS NO C/O OF PAIN AND RESPIRATIONS ARE EVEN AND UNLABORED ON ROOM AIR. PT ALSO GIVEN ICE CHIPS DUE TO C/O OF SORE THROAT. WILL MONITOR FOR EFFECT.
[2018-11-02] VITALS: BP 119/73
[2018-11-02] MEDS: LORazepam 2 MG/ML VIAL IVP PRN (00:26)
--- NOTE | 2018-11-02 00:30 | NUR ---
PT IN BED, SHE IS C/O OF ANXIETY AND ASKING FOR HER ANTI-ANXIETY MEDICATION. PT GIVEN .5MG OF ATIVAN IVP FOR ANXIETY. PT V/S FOLLOWS T 97.2 P 90 R 18 B/P 119/73 02 97% ON ROOM AIR.
[2018-11-02] MEDS: ALBUTEROL SULFATE/IPRATROPIU 3 ML SOL IH SCH ×3 (03:00→10:50)
[2018-11-02 04:00] VITALS: BP 111/66
--- NOTE | 2018-11-02 04:00 | NUR ---
PT IN BED RESTING WITH EYES CLOSED BUT AROUSABLE TO NAME AND LIGHT SHAKING. V/S FOLLOWS T 97.2 P 90 R 18 B/P 119/73 02 97% ON ROOM AIR. NO S/S OF PAIN OR DISTRESS NOTED.
--- NOTE | 2018-11-02 06:15 | NUR ---
PT FINGERSTICK IS 251, PT GIVEN 6 UNITS OF HUMALOG COVERAGE.
[2018-11-02] MEDS: INSULIN LISPRO SLIDING SCALE 100 UNITS/ML VIAL SUBQ PRN ×2 (06:51→12:08)
[2018-11-02] MEDS: BLOOD GLUCOSE MONITORING 1 DEV DEV FS SCH ×2 (06:52→12:06)
[2018-11-02] MEDS: BUDESONIDE 0.5 MG/2 ML NEBU INH SCH (06:53)
--- NOTE | 2018-11-02 07:20 | NUR ---
REPORT GIVEN TO ALVA RN DAYSHIFT NURSE AT BEDSIDE FOR CONTINUITY OF CARE, PT IN STABLE CONDITION.
--- NOTE | 2018-11-02 07:22 | NUR ---
RECEIVED BEDSIDE REPORT FROM MEDICAL REPRESENTATIVE NURSE FOR CONTINUITY OF CARE. PATIENT IS GETTING BREATHING TREATMENT AT THIS TIME. PATIENT IS AAOX4, SPEAKS ANGUILLAN AND ABLE TO UNDERSTAND MINIMAL [place]GISH. PATIENT IS ABLE TO MAKE NEEDS KNOWN AND FOLLOW SIMPLE DIRECTION. RESPIRATION EVEN AND UNLABORED ON RA. LUNGS ARE CLEAN ON AUSCULTATION. INTERMITTENT COUGHS NOTED. PATIENT DENIED PAIN AND SOB AT THIS TIME. NO SIGNS OF DISTRESS NOTED. IV ON R HAND 24G, CLEAN AND INTACT, SL. SKIN CLEAN AND DRY. PATIENT IS ABLE TO AMBULATE WITH STEADY GAIT AND CONTINENT. DISCUSSED PLAN OF CARE WITH PATIENT AND PATIENT VERBALIZED OK. TELE MONITOR ATTACHED. SAFETY MEASURES IN PLACE. BED IN LOW POSITION AND CALL LIGHT WITHIN REACH. INSTRUCTED PATIENT TO USE THE CALL LIGHT FOR ANY ASSISTANCE AND PATIENT WAS AWARE.
[2018-11-02 08:00] VITALS: BP 126/56
[2018-11-02] MEDS: guaiFENesin 20 MG/ML UDC PO PRN (08:15)
[2018-11-02] MEDS: methylPREDNISolone SS 125 MG/2 ML VIAL IVP SCH (08:16)
--- NOTE | 2018-11-02 08:18 | NUR ---
ADMINISTERED SCHEDULED MEDS PER MD ORDER, PATIENT TOLERATED WELL. PATIENT COMPLAINED SHE TIRED FROM COUGHING, ADMINISTERED PRN GUAIFENESIN. PATIENT IS AWAKE AND TALKING TO PATIENT ON BED A. SAFETY MEASURES IN PLACE. TELE MONITOR ATTACHED. BED IN LOW POSITION AND CALL LIGHT WITHIN REACH. INSTRUCTED PATIENT TO USE THE CALL LIGHT FOR ANY ASSISTANCE AND PATIENT WAS AWARE.
[2018-11-02] MEDS: ENOXAPARIN 40 MG/0.4 ML SYR SUBQ SCH (08:23)
--- NOTE | 2018-11-02 09:25 | NUR ---
ASSISTED PATIENT TO SHOWER AND GOT BACK INTO HER ROOM. RESPIRATION EVEN AND UNLABORED ON RA. DENIED PAIN. NO SIGNS OF DISTRESS NOTED. TELE MONITOR ATTACHED. SAFETY MEASURES IN PLACE. BED IN LOW POSITION AND CALL LIGHT WITHIN REACH. INSTRUCTED PATIENT TO USE THE CALL LIGHT FOR ANY ASSISTANCE AND PATIENT WAS AWARE.
[2018-11-02 09:49] LABS: BASOPHILS % (AUTO) 0.1 % (0.0-2.0); HEMATOCRIT 39.4 % (36-48); HEMOGLOBIN 13.3 g/dL (12.0-16.0); LYMPHOCYTES # (AUTO) 1.2 K/uL (2.5-16.5); LYMPHOCYTES % (AUTO) 12.9 % (20.5-51.1); MEAN CORPUSCULAR HEMOGLOBIN 32 pg (27-31); MEAN CORPUSCULAR HGB CONC 34 g/dL (33-37); MEAN CORPUSCULAR VOLUME 93.6 fL (80-94); MONOCYTES # (AUTO) 0.5 K/uL (0.8-1.0); MONOCYTES % (AUTO) 5.4 % (1.7-9.3); NEUTROPHILS # (AUTO) 7.6 K/uL (1.8-7.7); NEUTROPHILS % (AUTO) 81.6 % (42.2-75.2); PLATELET COUNT (AUTO) 239 K/uL (140-450); RED BLOOD CELL COUNT(AUTO) 4.21 MIL/uL (4.20-5.40); RED CELL DISTRIBUTION WIDTH 13.7 % (11.6-13.7); WHITE BLOOD COUNT (AUTO) 9.3 K/uL (4.8-10.8)
[2018-11-02 10:09] LABS: ANION GAP 18.6 (8-16); CARBON DIOXIDE 20.2 mmol/L (21-32); CREATININE 1.1 mg/dL (0.6-1.3); POTASSIUM 3.8 mmol/L (3.5-5.1)
[2018-11-02 10:14] LABS: ALBUMIN 4.3 g/dL (3.4-5.0); TOTAL BILIRUBIN 0.2 mg/dL (0.0-1.0)
--- NOTE | 2018-11-02 11:28 | NUR ---
DR MARTINEZ IS ASSESSING AND TALKING TO PATIENT AT BEDSIDE. NO SIGNS OF DISTRESS NOTED. TELE MONITOR ATTACHED. SAFETY MEASURES IN PLACE. BED IN LOW POSITION AND CALL LIGHT WITHIN REACH. INSTRUCTED PATIENT TO USE THE CALL LIGHT FOR ANY ASSISTANCE AND PATIENT WAS AWARE.
[2018-11-02] MEDS ORDERED: DOXY100C59 PO (11:34)
[2018-11-02] MEDS ORDERED: BUDE1AER IH (11:34)
[2018-11-02] MEDS ORDERED: ALBU0.0912 IH (11:34)
[2018-11-02] MEDS ORDERED: PRED20TA5 PO (11:35)
[2018-11-02] MEDS ORDERED: BENZ-196 PO (11:37)
--- NOTE | 2018-11-02 11:45 | NUR ---
INFORMED PATIENT THAT SHE WILL BE DC TODAY. PER PATIENT, SHE WILL CALL HER FAMILY AND LET ME KNOW WHAT TIME THEY WILL PICK HER UP. WILL PREPARE DC DOCUMENT.
[2018-11-02 12:00] VITALS: BP 135/75
--- NOTE | 2018-11-02 13:20 | NUR ---
DISCHARGE INSTRUCTION PROVIDED TO PATIENT USING [employer] [employer] [facility] [place] #[id number]. WAITING FOR PATIENT'S DAUGHTER TO BE ARRIVE FOR MEDICAL DOSIMETRIST. PATIENT IS AWAKE AND TALKING TO BED A PATIENT AT THIS TIME. NO SIGNS OF DISTRESS NOTED. TELE MONITOR ATTACHED. SAFETY MEASURES IN PLACE. BED IN LOW POSITION AND CALL LIGHT WITHIN REACH. INSTRUCTED PATIENT TO USE THE CALL LIGHT FOR ANY ASSISTANCE AND PATIENT WAS AWARE.
--- NOTE | 2018-11-02 14:00 | NUR ---
PATIENT IS AWAKE AND WATCHING TV ON BED. NO SIGNS OF DISTRESS NOTED. AWAITING FOR DAUGHTER TO ARRIVE TO THE HOSPITAL. TELE MONITOR ATTACHED. SAFETY MEASURES IN PLACE. BED IN LOW POSITION AND CALL LIGHT WITHIN REACH. INSTRUCTED PATIENT TO USE THE CALL LIGHT FOR ANY ASSISTANCE AND PATIENT WAS AWARE.
--- NOTE | 2018-11-02 14:25 | NUR ---
DISCHARGE INSTRUCTION PROVIDED TO PATIENT AND DAUGHTER AT BEDSIDE. EDUCATED PATIENT ON FOLLOW ON UP WITH MD, MEDICATION REGIMEN, SIDE EFFECTS, DISEASE MANAGEMENT, AND DIET. PATIENT VERBALIZED UNDERSTANDING. AND PER PATIENT, SHE HAS MADE AN APPOINTMENT WITH HER FAMILY DOCTOR ON 11/22. ANSWERED ALL PATIENT'S QUESTIONS. PATIENT CHECKED ALL CABINETS AND TOOK ALL HER BELONGINGS. D/C IV AND CANNULA INTACT, NO BLEEDING AT IV SITE. REMOVED ALL ARMS AND TELE MONITOR. PATIENT IS GOING TO DC AT THIS TIME ACCOMPANIED BY HER DAUGHTER. PATIENT IS IN STABLE CONDITION.
== END 2018-11-02 14:25 | disposition home or self-care (01) | DRG 145 ==
LOC: MED 16:59 → MTU 19:40
PROVIDERS: ADMIT Internal Medicine Pulmonary Disease; ATTEND Internal Medicine Pulmonary Disease
DX: J20.9 Acute bronchitis, unspecified (principal); E87.2 Acidosis; J44.0 Chronic obstructive pulmonary disease with (acute) lower respiratory infection; J44.1 Chronic obstructive pulmonary disease with (acute) exacerbation; J45.901 Unspecified asthma with (acute) exacerbation; E11.9 Type 2 diabetes mellitus without complications; I10 Essential (primary) hypertension; Z87.891 Personal history of nicotine dependence; E78.00 Pure hypercholesterolemia, unspecified; F41.9 Anxiety disorder, unspecified; F32.9 Major depressive disorder, single episode, unspecified
CPT/HCPCS: 36415; 71045; 80053; 81001; 82948; 83605; 83735; 83880; 84484; 85025; 87040; 87081; 87086; 87186; 93005; 94640; 96365; 96367; 96375; 99285; J0456; J0696; J1100; J1200; J1650; J2060; J2270; J2543; J2930; J3475; J7060; J7620; J7626

== ENCOUNTER 2019-02-17 16:07 | Emergency (ER) | payer OTHER ==
[~2019-02-17] VITALS: Ht 167.6 cm; Wt 80.3 kg
[~2019-02-17 16:07] MED LIST changes: +ALBU0.0912 IH; +BENZ-196 PO; +BUDE1AER IH; +DOXY100C59 PO; -METF500T PO; -METR500S14 PO; -MIRT15TA PO; +PRED20TA5 PO
[2019-02-17 16:27] VITALS: BP 148/64
--- NOTE | 2019-02-17 16:30 | NUR ---
PT TRIAGED AND SENT BACK TO THE LOBBY. VSS.
--- NOTE | 2019-02-17 16:45 | NUR ---
PT BROUGHT TO CHAIR C
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
[2019-02-17] MEDS ORDERED: IBUPROFEN 600 MG TAB PO ONE (18:05)
[2019-02-17 18:17] VITALS: BP 148/64
--- NOTE | 2019-02-17 18:17 | NUR ---
Patient discharged with v/s stable. Written and verbal after care instructions given and explained. PT ENCOURAGED TO REST AND ICE AREA. Patient alert, oriented and verbalized understanding of instructions. Ambulatory with steady gait. All questions addressed prior to discharge. ID band removed. Patient advised to follow up with PMD. Rx of NORCO AND IBUPROFEN WAS GIVEN given. Patient educated on indication of medication including possible reaction and side effects. Opportunity to ask questions provided and answered.
== END 2019-02-17 18:17 | disposition home or self-care (01) ==
LOC: MED 16:07
DX: S20.20XA Contusion of thorax, unspecified, initial encounter (principal); J45.909 Unspecified asthma, uncomplicated; E11.9 Type 2 diabetes mellitus without complications; I10 Essential (primary) hypertension; Z79.899 Other long term (current) drug therapy; X58.XXXA Exposure to other specified factors, initial encounter; Y93.39 Activity, other involving climbing, rappelling and jumping off; Y92.89 Other specified places as the place of occurrence of the external cause; Y99.8 Other external cause status
CPT/HCPCS: 71101; 99283

== ENCOUNTER 2022-03-16 15:05 | Emergency (ER) | payer OTHER ==
[~2022-03-16] VITALS: Ht 160 cm; Wt 80.7 kg
[~2022-03-16 15:05] MED LIST changes: +CHOL100084 PO; +CYCL-655 PO; -CYCL10TA13 PO; +DOXY-745 PO; -DOXY100C59 PO; -VITD1000 PO
[2022-03-16 15:08] VITALS: BP 146/76
[2022-03-16] MEDS ORDERED: IPRATROPIUM 0.02% 0.5 MG/2.5 ML NEBU INH ONE (15:40)
[2022-03-16] MEDS ORDERED: ALBUTEROL 0.083% 2.5 MG/3 ML NEBU INH ONE (15:40)
[2022-03-16] MEDS ORDERED: methylPREDNISolone SS 125 MG/2 ML VIAL IVP ONE (15:40)
--- NOTE | 2022-03-16 15:40 | NUR ---
Dr. Valenzuela evaluating pt at bedside
--- NOTE | 2022-03-16 15:40 | NUR ---
61 y/o F BIB self from home c/o SOB, cough, chest pain, left rib pain, back pain. Patient A&Ox4, ambulatory, states pain to back and left rib made worse with coughing episodes, and deep breaths causes increased lung pain. Pt states X-rays completed with PCP on 03/13/22 pending results. Pt states hx of recurrent pneumonia (x4 hospitalizations). States 7/10, pressure/intermittent, radiating to left rib/breast. Pt states worsens with coughing episodes. +Low abd pain. Denies fever, chills, dysuria, urinary symptoms. Valera and muscle relaxer @ 1200 today. Pt placed onto cardiac catheterization technician. Bed locked in lowest position, side rails x 1. PMH: asthma, HTN, HLD, DM2, depression NKDA Meds: see chart
--- NOTE | 2022-03-16 15:45 | NUR ---
Lab bedside for blood draw
--- NOTE | 2022-03-16 15:45 | NUR ---
EMT at bedside for EKG
--- NOTE | 2022-03-16 15:49 | NUR ---
RT at bedside for neb tx
[2022-03-16] MEDS ORDERED: LIDOCAINE 5% 1 EA PATCH TP STA (16:11)
[2022-03-16] MEDS ORDERED: ACETAMINOPHEN 325 MG TAB PO ONE (16:15)
[2022-03-16 16:19] LABS: ALBUMIN 3.8 g/dL (3.4-5.0); ANION GAP 14.1 (8-16); POTASSIUM 4.1 mmol/L (3.5-5.1); TOTAL BILIRUBIN 0.2 mg/dL (0.0-1.0)
[2022-03-16 16:55] LABS: BASOPHILS % (AUTO) 0.5 % (0.0-2.0); EOSINOPHILS % (AUTO) 0.6 % (0.0-4.0); HEMATOCRIT 37.4 % (36-48); HEMOGLOBIN 12.5 g/dL (12.0-16.0); LYMPHOCYTES # (AUTO) 1.5 K/uL (2.5-16.5); LYMPHOCYTES % (AUTO) 29.2 % (20.5-51.1); MEAN CORPUSCULAR HEMOGLOBIN 32 pg (27-31); MEAN CORPUSCULAR HGB CONC 33 g/dL (33-37); MEAN CORPUSCULAR VOLUME 95.2 fL (80-94); MONOCYTES # (AUTO) 0.4 K/uL (0.8-1.0); MONOCYTES % (AUTO) 8.2 % (1.7-9.3); NEUTROPHILS # (AUTO) 3.1 K/uL (1.8-7.7); NEUTROPHILS % (AUTO) 61.5 % (42.2-75.2); PLATELET COUNT (AUTO) 284 K/uL (140-450); RED BLOOD CELL COUNT(AUTO) 3.93 MIL/uL (4.20-5.40); RED CELL DISTRIBUTION WIDTH 14.7 % (11.6-13.7)
[2022-03-16] MEDS ORDERED: KETOROLAC 15 MG/ML VIAL IVP ONE (17:10)
[2022-03-16] MEDS ORDERED: ALBU0.0912 IH (17:13)
[2022-03-16] MEDS ORDERED: LID5T TP (17:13)
[2022-03-16] MEDS ORDERED: DICL100G5 TP (17:13)
[2022-03-16] MEDS ORDERED: ACETAMINOPHEN 325 MG TAB ONE (17:47)
[2022-03-16] MEDS ORDERED: LIDOCAINE 5% 1 EA PATCH TP ONE (17:48)
[2022-03-16 17:57] VITALS: BP 110/66
--- NOTE | 2022-03-16 18:05 | NUR ---
Patient discharged with v/s stable. Written and verbal after care instructions given and explained. Patient alert, oriented and verbalized understanding of instructions. Ambulatory with steady gait. All questions addressed prior to discharge. ID band removed. Patient advised to follow up with PMD. Rx of Proventil HFA MDI, Diclofenac Gel, Lidoderm 5% patch given. Patient educated on indication of medication including possible reaction and side effects. Opportunity to ask questions provided and answered. Copies of RAD results, blood work, given to pt.
== END 2022-03-16 18:05 | disposition home or self-care (01) ==
LOC: MED 15:05
DX: R07.89 Other chest pain (principal); Z20.822 Contact with and (suspected) exposure to COVID-19; J98.01 Acute bronchospasm; R06.02 Shortness of breath; J45.909 Unspecified asthma, uncomplicated; E11.9 Type 2 diabetes mellitus without complications; I10 Essential (primary) hypertension; F32.9 Major depressive disorder, single episode, unspecified; Z79.899 Other long term (current) drug therapy
CPT/HCPCS: 36415; 71045; 80053; 83880; 84484; 85025; 85379; 87426; 87804; 93005; 94640; 94760; 96374; 96375; 99285; J1885; J2930; J7613; J7644

== ENCOUNTER 2023-01-22 16:10 | Emergency (ER) | payer OTHER ==
[~2023-01-22] VITALS: Ht 167.6 cm; Wt 86.2 kg
[~2023-01-22 16:10] MED LIST changes: +DICL100G32 TP; +LID5T TP
[2023-01-22 16:34] VITALS: BP 117/88; PULSE 105; RESP 18; TEMP 98.4; O2SAT 98
[2023-01-22] MEDS ORDERED: CYCLOBENZAPRINE 10 MG TAB PO ONE (16:50)
[2023-01-22] MEDS ORDERED: KETOROLAC 30 MG/ML VIAL IM ONE (16:50)
[2023-01-22] MEDS ORDERED: IBUP-1842 PO (18:06)
[2023-01-22 18:14] VITALS: BP 117/88; PULSE 89; RESP 18; TEMP 98.4; O2SAT 98
== END 2023-01-22 18:15 | disposition home or self-care (01) ==
LOC: MED 16:10
DX: M25.511 Pain in right shoulder (principal); M25.551 Pain in right hip; J45.909 Unspecified asthma, uncomplicated; E11.9 Type 2 diabetes mellitus without complications; I10 Essential (primary) hypertension; Z79.899 Other long term (current) drug therapy
CPT/HCPCS: 73030; 73502; 96372; 99284; J1885